=== PATIENT | male | born 1960 | race Caucasian/White ===

== ENCOUNTER 2017-07-30 15:38 | Emergency (ER) | payer BC, OTHER ==
[2017-07-30 16:38] VITALS: BP 130/81; PULSE 95; RESP 16; TEMP 97.4; O2SAT 98
[2017-07-30] MEDS ORDERED: CEFTRIAXONE 1 GM PDS ONE (17:52)
[2017-07-30] MEDS: CEFTRIAXONE 1 GM PDS IM ONE (18:03)
== END 2017-07-30 18:47 | disposition home or self-care (01) | DRG 914 ==
LOC: ED 15:38
DX: S91.321A Laceration with foreign body, right foot, initial encounter (principal); E11.42 Type 2 diabetes mellitus with diabetic polyneuropathy; W45.8XXA Other foreign body or object entering through skin, initial encounter; Z79.4 Long term (current) use of insulin
CPT/HCPCS: 99282; J0696

== ENCOUNTER 2017-08-30 11:18 | Emergency (ER) | payer OTHER ==
[2017-08-30] MEDS: SODIUM CHLORIDE 0.9% FLUSH 10 ML SOL IV PRN ×2 (11:45→12:10)
[2017-08-30 12:01] LABS: BASOPHILS % (AUTO) 0 % (0-3); EOSINOPHILS % (AUTO) 0 % (0-9); HEMATOCRIT 35 % (39-53); MEAN CORPUSCULAR HGB CONC 33.7 gm/dl (32.0-36.0); MEAN CORPUSCULAR VOLUME 88 fL (80-100); MONOCYTES % (AUTO) 3.2 % (0-12); NEUTROPHILS % (AUTO) 92.4 % (37-80)
[2017-08-30 12:04] LABS: ALBUMIN 3.6 gm/dl (3.4-5.0); CALCIUM 8.9 mg/dl (8.5-10.1)
[2017-08-30] MEDS ORDERED: VANCOMYCIN HCL 500 MG PDS 1,000 MG in SODIUM CHLORIDE 0.9% 250 ML 250 ML IV ONE (12:09)
[2017-08-30] MEDS ORDERED: PIPERACILLIN/TAZOBACT 3.375 GM 3.375 GM in SODIUM CHLORIDE 0.9% 100 ML 100 ML IV ONE (12:09)
[2017-08-30] MEDS ORDERED: VANCOMYCIN HYDROCHLORIDE 500 MG PDS IV ONE (12:10)
[2017-08-30] MEDS ORDERED: WATER, STERILE 20 ML 40 ML ONE (12:11)
[2017-08-30] MEDS ORDERED: SODIUM CHLORIDE 0.9% 1000ML 1,000 ML IV SCH (12:15)
[2017-08-30 12:38] VITALS: TEMP 100.7
[2017-08-30] MEDS ORDERED: PIPERACILLIN/TAZOBACT 3.375 GM PDS IV ONE (13:00)
[2017-08-30 13:06] VITALS: O2SAT 97
[2017-08-30 13:20] VITALS: BP 101/60; PULSE 117; RESP 25
[2017-08-30] MEDS ORDERED: SODIUM CHLORIDE 0.9% 500 ML 500 ML IV ONE (13:24)
== END 2017-08-30 14:07 | disposition short-term general hospital (02) | DRG 540 ==
LOC: ED 11:18
DX: M86.171 Other acute osteomyelitis, right ankle and foot (principal); L97.419 Non-pressure chronic ulcer of right heel and midfoot with unspecified severity; E11.621 Type 2 diabetes mellitus with foot ulcer
CPT/HCPCS: 36415; 73630; 80053; 85025; 87040; 99285; J2543; J3370

== ENCOUNTER 2018-05-22 12:11 | Outpatient (CLI) | payer BC | END 2018-05-22 12:12 | disposition home or self-care (01) | LOC: CONVCARE 12:11 | PROVIDERS: ATTEND Orthopaedic Surgery | DX: S96.811A Strain of other specified muscles and tendons at ankle and foot level, right foot, initial encounter (principal); M14.671 Charcot's joint, right ankle and foot | CPT/HCPCS: 73610; 73630 ==